=== PATIENT | male | born 1985 | race Caucasian/White ===

== ENCOUNTER → 2018-04-16 | Outpatient (CLI) | payer OTHER | LOC: BHSO 08:52 | DX: F33.1 Major depressive disorder, recurrent, moderate (principal) | CPT/HCPCS: G0463 ==

== ENCOUNTER → 2018-05-29 | Outpatient (CLI) | payer OTHER | LOC: BHSO 16:00 | DX: F41.1 Generalized anxiety disorder (principal) | CPT/HCPCS: G0463 ==

== ENCOUNTER → 2018-08-23 | Outpatient (CLI) | payer OTHER | LOC: BHSO 15:29 | DX: F41.1 Generalized anxiety disorder (principal) | CPT/HCPCS: G0463 ==